=== PATIENT | female | born 1985 | race Asian ===

== ENCOUNTER 2021-04-14 04:13 | Inpatient (IN) | payer OTHER, SELFPAY ==
[2021-04-14] VITALS (131 sets, daily range): BP systolic 87–138; BP diastolic 35–80; PULSE 41–114; RESP 16–18; TEMP 36.4–37.3; O2SAT 78–100; BMI 29.5
--- NOTE | 2021-04-14 04:38 | LDADM ---
This patient, Tracy Luu, was admitted to Labor/Delivery/Recovery 107 on 04/14/21 at 04:13. Plans for labor, pain management and were discussed with patient. Patient/family oriented to hospital policies and general routines including ID bracelet, bed and alarms, visiting hours, pain management, procedures, bathroom and other care routines, personal items, smoking policy, room service/diet and guest tray routines, infant security routines, and visiting hours. Patient/Family are encouraged to report perceived risks to care and to ask questions if they do not understand what they are told or what they should do. See OBIX for further documentation.
[2021-04-14] MEDS: LACTATED RINGERS 1,000 ML 125 ML IV CONT ×4 (05:07→10:58)
[2021-04-14 05:30] LABS: Basophils Percent Auto 0.3 % (0.2-1.2); Eosinophils Absolute Auto 0.1 K/mm3 (0-0.3); Eosinophils Percent Auto 0.5 % (0-4.4); Hematocrit 40.6 % (37.0-47.0); Hemoglobin 13.3 g/dL (12.0-15.0); Immature Granulocyte Absolute 0.06 K/mm3 (0.00-0.031); Immature Granulocyte Percent A 0.6 % (0-0.5); Lymphocytes Absolute Auto 1.36 K/mm3 (0.9-3.2); Lymphocytes Percent Auto 12.9 % (18.3-44.2); Mean Corpuscular HGB Conc 32.8 g/dl (32-36); Mean Corpuscular Hemoglobin 33.3 pg (26-34); Mean Corpuscular Volume 101.8 fl (80-100); Mean Platelet Volume 8.9 fl (7.4-10.4); Monocytes Absolute Auto 0.6 K/mm3 (0.1-0.6); Monocytes Percent Auto 5.8 % (2.6-8.5); Neutrophils Absolute Auto 8.4 K/mm3 (1.3-6.7); Neutrophils Percent Auto 79.9 % (45.5-73.1); Platelet Count Result 212 k/mm3 (150-375); Red Blood Count 3.99 M/mm3 (4.2-5.4); Red Cell Distribution Width 14.9 % (11.5-14.5); White Blood Count 10.5 K/mm3 (4.5-10.0)
--- NOTE | 2021-04-14 05:59 | P.PNAN_ITS ---
Anes - Eval Pre Procedure Procedure: labor epidural Date/Time: 04/14/21 05:59 Surgeon: willy carr Pre Op Diagnosis: ctx Patient Data Age: 35 Gender: F Height: 1.63 m Weight: 78 kg Last Vital Signs Pulse 92 04/14/21 05:57 BP 109/58 L 04/14/21 05:57 Pulse Ox 100 04/14/21 05:57 Allergies Allergy/AdvReac Type Severity Reaction Status Date / Time No Known Drug Allergies Allergy Unknown Verified 08/07/16 18:30 Home Medications Medication Instructions Recorded Confirmed Type PNV cmb#95-ferrous fumarate-FA 1 tablet PO DAILY 04/04/21 04/04/21 History [] Laboratory Tests 04/14/21 04/14/21 03:48 04:36 WBC 10.5 K/mm3 H K/mm3 (4.5-10.0) RBC 3.99 M/mm3 L M/mm3 (4.2-5.4) Hgb 13.3 g/dL g/dL (12.0-15.0) Hct 40.6 % % (37.0-47.0) MCV 101.8 fl H fl (80-100) MCH 33.3 pg pg (26-34) MCHC 32.8 g/dl g/dl (32-36) RDW 14.9 % H % (11.5-14.5) Plt Count 212 k/mm3 k/mm3 (150-375) MPV 8.9 fl fl (7.4-10.4) Immature Gran % (Auto) 0.6 % H % (0-0.5) Neut % (Auto) 79.9 % H % (45.5-73.1) Lymph % (Auto) 12.9 % L % (18.3-44.2) [place] % (Auto) 5.8 % % (2.6-8.5) Eos % (Auto) 0.5 % % (0-4.4) Baso % (Auto) 0.3 % % (0.2-1.2) Lymph # (Auto) 1.36 K/mm3 K/mm3 (0.9-3.2) [place] # (Auto) 0.6 K/mm3 K/mm3 (0.1-0.6) Eos # (Auto) 0.1 K/mm3 K/mm3 (0-0.3) Baso # (Auto) 0.0 K/mm3 K/mm3 (0.0-0.1) Abs Immat Gran (auto) 0.06 K/mm3 H K/mm3 (0.00-0.031) Absolute Neuts (auto) 8.4 K/mm3 H K/mm3 (1.3-6.7) Absolute Nucleated RBC 0.0 K/mm3 K/mm3 (0.0-0.012) Nucleated RBC % 0.0 % % (0.0-0.2) RPR Pending Patient hx anesthesia problems: none Family hx anesthesia problems: none Results Review: All pre-operative results and documents have been reviewed as part of the pre-operative evaluation. [facility] Family History Family History (Updated 04/04/21 @ 14:37 by Abdi Larkin RN) Other No pertinent family history Social History Social History Smoking status: Never smoker Second hand tobacco smoke exposure: No Substance use: never Spiritual care concerns: No Exam Day of Procedure 04/14/21 05:59
[2021-04-14] MEDS: ONDANSETRON INJ 4 MG/2 ML VIAL IV PUSH ×2 (06:50→11:05)
[2021-04-14] MEDS: PHENYLEPHRINE 1,000 MCG/10 ML SYRINGE 1000 MCG (07:16)
[2021-04-14 07:28] LABS: Rapid Plasma Reagin Non-Reactive (NonReactive)
--- NOTE | 2021-04-14 07:50 | PM.IMHP ---
H&P: HPI History of Present Illness Date/Time: 04/14/21 07:50 5-year-old 2 para 1 whose last menstrual period was 07/18/2020, EDC is 08/22/2021, confirmed by 6 week ultrasound presents at term in active labor. Her has been uncomplicated. She was admitted and was 4cm and is now 6 with clear rupture of membranes Chief Complaint: labor at term Review of Systems Review of Systems: All systems reviewed & are unremarkable except as noted in HPI and below PMFSH Family History Family History Other No pertinent family history Social History Social History Smoking status: Never smoker Second hand tobacco smoke exposure: No Substance use: never Spiritual care concerns: No Meds Home Medications and Allergies Home Medications Medication Instructions Recorded Confirmed Type PNV cmb#95-ferrous fumarate-FA 1 tablet PO DAILY 04/04/21 04/04/21 History [] Allergies Allergy/AdvReac Type Severity Reaction Status Date / Time No Known Drug Allergies Allergy Unknown Verified 08/07/16 18:30 Vital Signs Vital Signs - 24 hr 04/14/21 05:21 04/14/21 05:31 04/14/21 05:46 Pulse Rate 75 77 72 Blood Pressure 112/50 L 87/51 L 108/55 L Pulse Oximetry 04/14/21 05:57 04/14/21 06:00 04/14/21 06:02 Pulse Rate 92 74 85 Blood Pressure 109/58 L 126/65 100/66 Pulse Oximetry 100 100 04/14/21 06:03 04/14/21 06:06 04/14/21 06:07 Pulse Rate 99 78 Blood Pressure 118/80 117/53 L Pulse Oximetry 100 04/14/21 06:09 04/14/21 06:11 04/14/21 06:12 Pulse Rate 92 82 Blood Pressure 123/65 116/51 L Pulse Oximetry 99 04/14/21 06:14 04/14/21 06:16 04/14/21 06:17 Pulse Rate 81 88 Blood Pressure 120/60 108/51 L Pulse Oximetry 97 04/14/21 06:19 04/14/21 06:21 04/14/21 06:22 Pulse Rate 81 82 Blood Pressure 110/57 L 106/55 L Pulse Oximetry 98 04/14/21 06:24 04/14/21 06:26 04/14/21 06:27 Pulse Rate 86 99 Blood Pressure 102/53 L 89/71 L Pulse Oximetry 99 04/14/21 06:29 04/14/21 06:31 04/14/21 06:32 Pulse Rate 89 88 Blood Pressure 104/53 L 103/57 L Pulse Oximetry 94 04/14/21 06:34 04/14/21 06:36 04/14/21 06:37 Pulse Rate 90 89 Blood Pressure 108/56 L 103/55 L Pulse Oximetry 95 04/14/21 06:39 04/14/21 06:42 04/14/21 06:44 Pulse Rate 80 91 80 Blood Pressure 103/51 L 98/56 L 105/49 L Pulse Oximetry 97 04/14/21 06:46 04/14/21 06:47 04/14/21 06:49 Pulse Rate 83 114 H Blood Pressure 101/35 L 135/61 Pulse Oximetry 99 04/14/21 06:51 04/14/21 06:52 04/14/21 06:53 Pulse Rate 98 86 Blood Pressure 115/58 L 110/54 L Pulse Oximetry 100 04/14/21 06:54 04/14/21 06:57 04/14/21 07:01 Pulse Rate 82 85 Blood Pressure 110/52 L 107/53 L Pulse Oximetry 100 04/14/21 07:02 04/14/21 07:07 04/14/21 07:11 Pulse Rate 85 Blood Pressure 91/47 L Pulse Oximetry 100 99 04/14/21 07:12 04/14/21 07:17 04/14/21 07:21 Pulse Rate 68 Blood Pressure 106/50 L Pulse Oximetry 100 100 04/14/21 07:22 04/14/21 07:27 04/14/21 07:31 Pulse Rate 67 Blood Pressure 103/50 L Pulse Oximetry 100 100 04/14/21 07:32 04/14/21 07:37 04/14/21 07:41 Pulse Rate 72 Blood Pressure 107/53 L Pulse Oximetry 98 100 04/14/21 07:42 04/14/21 07:47 Pulse Rate Blood Pressure Pulse Oximetry 100 100 Exam Const: General: no acute distress Eyes: General: appearance normal, both eyes and all related structures Neck: Neck: supple and no JVD Thyroid: thyroid normal Resp: Effort & Inspection: normal respiratory effort Auscultation: clear to auscultation bilaterally Cardio: Rate: regular rate Rhythm: regular rhythm GI: Inspection: non-distended GI Palp: Yes Soft to palpation, No Tenderness to palpation present (GI) and No Guarding due to palpation present (GI) Auscultation: normal bowel so
[2021-04-14] MEDS: METOCLOPRAMIDE HCL INJ 10 MG/2 ML VIAL IV PUSH (07:58)
[2021-04-14] MEDS: PHENYLEPHRINE 1,000 MCG/10 ML SYRINGE 100 MCG IV PUSH (11:05)
[2021-04-14] MEDS: OXYTOCIN 30 UNITS/NS 500 ML 30 UNITS/500 ML BAG 125 UNITS IV CONT ×2 (11:51→12:22)
--- NOTE | 2021-04-14 11:54 | PM.OBPRVD ---
OB - Delivery Note Procedure Delivery date: 04/14/21 Induction method: None Delivery monitor: External FHT Route of delivery: Episiotomy description: None Laceration Description: None Specimen: No Quantitative Blood Loss (ml): 59 Anesthesia type: Epidural Disposition: floor Baby Date of : 04/14/21 Time of : 11:44 Weeks of gestation at delivery: 38 gender: Female Weight (pounds): 6 Weight (ounces): 14 presentation: vertex position: Right Occiput Anterior Cord Vessel Description: 3 Vessels score one minute: 9 score five minutes: 9
[2021-04-14] MEDS: METHYLERGONOVINE MALEATE 0.2 MG/ML VIAL IM (12:00)
--- NOTE | 2021-04-14 14:46 | PC.NURSE ---
Patient transferred to post room #290 per wheelchair. Support person present. Oriented to unit, room, information board, rooming in, admission packet and security measures. Patient verbalizes understanding.
--- NOTE | 2021-04-14 16:20 | PC.NURSE ---
1550 - 1620 Introductions were made and mother led the discussion of her desires and plans to feed her baby. Mother states she wants to breastfeed but lacks confidence in her ability and milk supply. There is a formula bottle in the room from primary RN encouraging infant to breast. Educated mother regarding stimulating breast with effective latching, nipple stretching and hand expression to encourage milk production. Reviewed handwashing to prevent infection before and after taking care of her baby. Discussed how to watch for early feeding cues, place skin to skin, then feeding baby when infant is ready aiming for 8-12 times in 24 hours (approximately every 2-3 hours). Reviewed positioning/alignment with the use of the mom and baby guide. Encouraged mother with skin to skin between her breast, then after visualizing feeding cues assisted to the right breast in football position using nipple to nose with asymmetrical 140-degree latch reviewing visual handout. She denies any nipple discomfort. Reviewed there is to be no pain with , how to detach infant from the breast, visuals to watch for to confirm effective . Reviewed effective latching with resources with visual handout and mom and baby guide. was able to maintain effective latch for 10 min, self detached and nipple was not misshaped. Mother has verbalized understanding watching for feeding cues for responsive feeding, how to stimulate to initiate to feed infant 8-12 times in 24 hours approximately every 2-3 hours from the start of the last feeding and to call for assistance if doesn't latch or she has discomfort with nursing. Reported to primary RN.
[2021-04-14] MEDS: BENZOCAINE 20% AER SPR (*SP) 56 GM CAN 1 SPRAY TOPICAL (17:03)
[2021-04-14] MEDS: DOCUSATE SODIUM 100 MG CAPSULE PO (17:04)
[2021-04-14] MEDS: WITCH HAZEL 40 PADS 1 PAD TOPICAL (17:04)
[2021-04-14] MEDS: LANOLIN (LANSINOH) 7.5 GM CREAM 1 APPLIC TOPICAL (17:04)
[2021-04-14] MEDS: IBUPROFEN 600 MG TABLET PO ×2 (17:04→23:04)
[2021-04-14] MEDS: ACETAMINOPHEN 325 MG TABLET 650 MG PO (22:14)
[2021-04-15 05:15] VITALS: BP 97/68; PULSE 62; RESP 16; TEMP 36.6; O2SAT 99
[2021-04-15 05:35] LABS: Hematocrit 36.5 % (37.0-47.0); Hemoglobin 11.9 g/dL (12.0-15.0)
[2021-04-15 07:30] VITALS: PULSE 62; RESP 16; O2SAT 99
[2021-04-15 08:10] VITALS: BP 99/63; PULSE 82; RESP 16; TEMP 36.9; O2SAT 98
--- NOTE | 2021-04-15 08:10 | PM.DS ---
DS: Admitting Diagnosis Discharge Date 04/15/2021 Admitting Diagnosis Term in active labor DS: Summary Hospital Course Hospital Course: This is a 35-year-old very pleasant female who is admitted at term for active labor. She underwent spontaneous vaginal delivery which was unremarkable. Her 24hour course was unremarkable as well. She remained afebrile. She was up, voiding without difficulty, ambulating, breast-feeding, generally without complaints. Time Spent with Patient Time attestation: Total time spent providing and/or coordinating discharge services: Exam Const: General: no acute distress Eyes: General: appearance normal, both eyes and all related structures Neck: Neck: supple and no JVD Thyroid: thyroid normal Resp: Effort & Inspection: normal respiratory effort Auscultation: clear to auscultation bilaterally Cardio: Rate: regular rate Rhythm: regular rhythm GI: Inspection: non-distended GI Palp: Yes Soft to palpation, No Tenderness to palpation present (GI) and No Guarding due to palpation present (GI) Auscultation: normal bowel sounds : General: Yes bladder normal to palpation External Female Exam: normal external appearance Speculum Exam - Vagina: normal vaginal discharge and No vaginal bleeding Speculum Exam - Cervix: nontender Bimanual exam- vagina & uterus: bladder normal to palpation and No Cervical tenderness present OB/external & speculum: No vaginal bleeding Skin: General skin exam: no rashes or lesions noted Extrem: General: normal to inspection and no edema Psych: Mental Status: mental status grossly normal Affect: normal affect DS: Data Data Completed and Pending Labs on day of discharge: Labs from last 24 hours 04/15/21 05:23 Hgb 11.9 L Hct 36.5 L Discharge Plan Discharge Attending physician on discharge: Arron Villa Discharging Clinician: Arron Villa Patient Disposition: Home, Self-Care Activity: no straining and pelvic rest Diet: heart healthy Wound Care Instructions: follow printed instructions Patient Instructions: Antibiotic Form Stand Alone Forms: General Discharge Information Follow-up/Referrals: Arron Villa MD [Physician] - Discharge Medications: Continued PNV cmb#95-ferrous fumarate-FA [] 28 mg iron- 800 mcg Tablet 1 tablet PO DAILY RF: 0 Date of admission: 04/14/21 04:13 Primary Care Provider: PHYSICIAN NOT ON STAFF,NONSTAFF Admitting Provider: Arron Villa Attending physician on admission: Arron Villa Condition: Stable
--- NOTE | 2021-04-15 08:12 | PM.OBPNVD ---
OB - PN: Subj Subjective Date/time seen: 04/15/21 08:12 Patient comments: no complaints and pain well controlled baby status: doing well and nursing well OB - PN: Obj Data Labs CBC & Chem 7: 04/15/21 05:23 Labs: Laboratory Results - last 24 hr 04/15/21 05:23 Hgb 11.9 L Hct 36.5 L OB - PN A/P Plan day: 1 Plan: routine care, discharge home and follow up 6 weeks Time Spent With Patient Time: Total time spent is greater than 50% in coordination of care (as documented) at patient's floor/unit and/or counseling patient: Time with patient: less than 15 minutes Review of Systems Review of Systems: All systems reviewed & are unremarkable except as noted in HPI and below Exam Const: General: no acute distress Eyes: General: appearance normal, both eyes and all related structures Neck: Neck: supple and no JVD Thyroid: thyroid normal Resp: Effort & Inspection: normal respiratory effort Auscultation: clear to auscultation bilaterally Cardio: Rate: regular rate Rhythm: regular rhythm GI: Inspection: non-distended GI Palp: Yes Soft to palpation, No Tenderness to palpation present (GI) and No Guarding due to palpation present (GI) Auscultation: normal bowel sounds : General: Yes bladder normal to palpation External Female Exam: normal external appearance Speculum Exam - Vagina: normal vaginal discharge and No vaginal bleeding Speculum Exam - Cervix: nontender Bimanual exam- vagina & uterus: bladder normal to palpation and No Cervical tenderness present OB/external & speculum: No vaginal bleeding Skin: General skin exam: no rashes or lesions noted Extrem: General: normal to inspection and no edema Psych: Mental Status: mental status grossly normal Affect: normal affect
--- NOTE | 2021-04-15 13:56 | WPDANLDPN2 ---
Anes-Prog Note L&D Date/Time: 04/15/21 13:56 Comfortable throughout: labor and delivery Neuraxial method: epidural Epidural/Spinal procedure site: clean & non-tender Neuro status: Neuro function grossly intact. Cardiovascular status: normal Vital Signs: Last Vital Signs Temp 36.9 C 04/15/21 08:10 Pulse 82 04/15/21 08:10 Resp 16 04/15/21 08:10 BP 99/63 L 04/15/21 08:10 Pulse Ox 98 04/15/21 08:10 Pain score (VAS): 0 I/O: Intake & Output 04/14/21 04/15/21 04/15/21 23:59 07:59 15:59 Intake Total 1000 Balance 1000 Post-procedural complaints: none Patient feedback: Patient satisfied with anesthetic care.
[2021-04-16 10:32] VITALS: BP 116/62; PULSE 79; RESP 20; TEMP 37; O2SAT 98
== END 2021-04-15 14:00 | disposition home or self-care (01) | DRG 807 ==
LOC: ANHLDR 04:36 → ANHOB2 14:56
PROVIDERS: Admitting Provider Obstetrics & Gynecology; Visit Provider Obstetrics & Gynecology
DX: O80 Encounter for full-term uncomplicated delivery (principal); Z37.0 Single live birth; Z3A.38 38 weeks gestation of pregnancy
CPT/HCPCS: 36415; 85014; 85018; 85025; 86592; 86850; 86900; 86901; A9270; J2210; J2370; J2405; J2590; J2765; J2795; J7120

== ENCOUNTER 2024-04-01 10:09 | Emergency (ER) | payer OTHER, SELFPAY ==
[2024-04-01 10:24] VITALS: BP 123/60; PULSE 104; RESP 18; TEMP 36.6; O2SAT 99
--- NOTE | 2024-04-01 10:42 | ED.URI ---
HPI - URI/Sore Throat General Chief Complaint: Upper Respiratory Infection Stated Complaint: Fatigue/Congestion/Cough Time Seen by Provider: 04/01/24 10:57 Source: patient and RN notes reviewed Mode of arrival: ambulatory Limitations: no limitations History of Present Illness HPI Narrative: 38-year-old female presents with concern for body aches, cough, headache this started yesterday. She reports she took ibuprofen this morning MD elicited complaint: cough Related Data Home Medications ?Medication ?Instructions ?Recorded ?Confirmed ?Last Taken ?Type clobetasol 0.05 % scalp solution topical 04/01/24 Unknown History Allergies Allergy/AdvReac Type Severity Reaction Status Date / Time No Known Drug Allergies Allergy Unknown Other Verified 04/01/24 10:50 Review of Systems Review of Systems: CONSTITUTIONAL: Denies malaise, chills, sweats, or fever. EYES: Denies visual changes, redness, or discharge. ENT: Reports rhinorrhea, congestion CARDIOVASCULAR: Denies chest pain, palpitations, or edema. RESPIRATORY: Reports cough. Denies dyspnea. GASTROINTESTINAL: Denies abdominal pain, nausea, vomiting, diarrhea SKIN: Denies rash or itching. MUSCULOSKELETAL: Reports myalgia. NEUROLOGIC: Reports headache. All systems reviewed & are unremarkable except as noted in HPI and below PMFSH Family History Family History Other No pertinent family history Social History Social History Smoking status: Never smoker Second hand tobacco smoke exposure: No Substance use: never Spiritual care concerns: No Comments At time of signature, agree with nursing past medical, surgical, social and family history. There is no relevant family history pertinent to the presenting complaint Exam Narrative: GENERAL: Well-appearing, well-nourished, and in no acute distress. HEAD: Normocephalic EYES: PERRLA, conjunctivae clear ENT: Nares clear, turbinates edematous and erythematous, clear discharge. Mucous membranes moist. TM pearly gibbons with dull light reflex bilaterally; no tragal tenderness. Oropharynx not erythematous without lesions. Tonsils not enlarged and without exudate, no drooling, no hoarseness, no trismus, uvula midline. NECK: Supple. No lymphadenopathy CHEST: Clear to auscultation, breath sounds equal. No wheezing, rhonchi, rales, or stridor. No respiratory distress, speaks in full sentences. HEART: Regular rate and rhythm. No murmur heard. SKIN: Warm, dry, no rash. NEURO: Alert and oriented x3. PSYCH: Normal mood and affect Course Course Emergency Course: Patient is aware of diagnosis, understands and agrees to treatment plan. Anticipatory guidance given. Patient agrees to follow-up as directed and is aware of reasons to seek care at the emergency department. Portions of this record may have been created with voice recognition software Level of Care: Express Care Visit Vital Signs Vital signs: Vital Signs Temperature 98 F 04/01/24 10:24 Pulse Rate 104 H 04/01/24 10:24 Respiratory Rate 18 04/01/24 10:24 Blood Pressure 123/60 04/01/24 10:24 Pulse Oximetry 99 04/01/24 10:24 Temperature 98 F 04/01/24 10:24 Pulse Rate 104 H 04/01/24 10:24 Respiratory Rate 18 04/01/24 10:24 Blood Pressure 123/60 04/01/24 10:24 Pulse Oximetry 99 04/01/24 10:24 Reviewed. MDM - URI/Sore Throat MDM Narrative Medical decision making narrative: Differential diagnosis considered: Taylor virus, strep pharyngitis, allergic rhinitis, upper respiratory tract infection, sinusitis, rhinosinusitis, nasopharyngitis. viral pharyngitis, otitis media, otitis externa, pneumonia, bronchitis, viral cough syndrome, viral syndrome, and influenza. Exam findings show no acute concerns or changes; patient is non-toxic appearing and is in no distress. Patient is appropriate for outpatient treatment and follow-up. Lab Data Attestation: I reviewed the patient's lab results. Labs: Lab Results 04/01/24 Range/Units 10:56 POC Influenza A Ag Negative (Negative) POC Influenza B Ag Negative (Negative) POC SARS CoV-2 Ag Positive (Negative) Critical Care Time Critical Care Time Critical Care Time: No Discharge Plan Discharge Clinical Impression: COVID Patient Disposition: Home, Self-Care Condition: Stable Instructions: How to Recover from COVID-19 at Home (ED) Additional Instructions: Your rapid COVID test is positive. COVID is a virus, antibiotics are not effective against viruses. Your body has to kill viruses. ? Stay home when you are sick, except to get medical care. ? Stay home until your symptoms are resolving and you haven't had a fever for 24 hours. ? If you are self isolating at home where others live, use a separate room and bathroom for sick household members (if possible). Clean any shared rooms as needed, to avoid transmitting the virus. ? Wash your hands often with soap and water for at least 20 seconds, especially after blowing your nose, coughing, or sneezing; going to the bathroom; and before eating or preparing food. ? If soap and water are not available, use an alcohol-based hand train driver with at least 60% alcohol. ? Have a supply of clean, disposable face masks. Everyone, no matter their COVID diagnosis, should wear face masks while in the home. - Over the counter medications such as Tylenol every 4 hours, ibuprofen every 6 hours (you can alternate these for maximum effect), Mucinex DM for cough, and psuedoephedrine (you must ask the pharmacist for this) can help relieve symptoms while your body fights off the virus. Watch for symptoms and learn when to seek emergency medical attention. If someone is showing any of these signs, seek emergency medical care immediately: ? Trouble breathing ? Persistent chest pain/pressure ? Confusion ? Inability to wake or stay awake ? Bluish lips or face Call 911 or call ahead to your local emergency room: Notify the forklift operator that you are seeking care for someone who has or may have COVID Patient Language: Greenlandic Prescriptions: New pseudoephedrine HCl [12 Hour Decongestant] 120 mg tablet extended release 120 mg PO Q12H PRN (Reason: nasal congestion) Qty: 20 0RF dextromethorphan-guaifenesin [Mucinex DM] 60-1,200 mg tablet extended release 12 hr 1 tablet PO Q12H Qty: 12 0RF No Action clobetasol 0.05 % solution TOPICAL Follow-up/Referrals: PHYSICIAN,ROTARY VENEER MACHINE OPERATOR [Primary Care Provider] - Stand Alone Forms: Work/School Release IP Time of Disposition: 11:06
[2024-04-01 10:58] LABS: EDCOVIDSCREEN Positive (Negative); EDINFLUASCREEN Negative (Negative); EDINFLUBSCREEN Negative (Negative)
== END 2024-04-01 11:13 | disposition home or self-care (01) ==
PROVIDERS: Emergency Provider Nurse Practitioner
DX: U07.1 COVID-19 (principal)
CPT/HCPCS: 87426; 87804; 99213; G0463